=== PATIENT | female | born 1965 | race Caucasian/White ===

== ENCOUNTER → 2018-02-03 | Outpatient (CLI) | payer BC | LOC: LAB 17:36 | PROVIDERS: ATTEND Nurse Practitioner Family | DX: R19.7 Diarrhea, unspecified (principal); K21.9 Gastro-esophageal reflux disease without esophagitis; M13.80 Other specified arthritis, unspecified site; Z20.09 Contact with and (suspected) exposure to other intestinal infectious diseases; Z20.89 Contact with and (suspected) exposure to other communicable diseases | CPT/HCPCS: 82274; 87015; 87045; 87046; 87324; 87328; 87329; 87449; 87899 ==